=== PATIENT | female | born 1960 | race Caucasian/White ===

== ENCOUNTER 2020-10-08 11:20 | Emergency (ER) | payer BC ==
--- NOTE | 2020-10-08 12:15 | ED ---
Fall HPI - General Chief Complaint: Fall Stated Complaint: lt wrist injury Time Seen by Provider: 10/08/20 11:32 Source: patient Mode of arrival: ambulatory - History of Present Illness Initial Comments: Patient is a 59-year-old female presenting to the emergency department with chief complaint of left wrist pain. Patient reports this occurred about one hour prior to arrival. Patient states she was walking, lost her footing and fell backward and attempted to brace her fall with her left hand. Patient states she fell on an outstretched hand. Denies any head injury. Patient denies any numbness or tingling. States she took one Advil prior to arrival. States any movement of the hand makes the pain worse. Resting alleviate the pain. Patient does not want any pain medication. - Related Data Allergies Allergy/AdvReac Type Severity Reaction Status Date / Time No Known Allergies Allergy Verified 10/08/20 11:30 Review of Systems ROS Statement: Those systems with pertinent positive or pertinent negative responses have been documented in the HPI. ROS Other: All systems not noted in ROS Statement are negative. Past Medical History Past Medical History: Thyroid Disorder History of Any Multi-Drug Resistant Organisms: None Reported Past Surgical History: No Surgical Hx Reported Past Psychological History: No Psychological Hx Reported Smoking Status: Never smoker Past Alcohol Use History: Occasional Past Drug Use History: None Reported General Exam Limitations: no limitations General appearance: alert, in no apparent distress Head exam: Present: atraumatic, normocephalic, normal inspection Eye exam: Present: normal appearance, PERRL, EOMI Pupils: Present: normal accommodation ENT exam: Present: normal exam, normal oropharynx, mucous membranes moist, TM's normal bilaterally, normal external ear exam Neck exam: Present: normal inspection, full ROM. Absent: tenderness Respiratory exam: Present: normal lung sounds bilaterally. Absent: respiratory distress, wheezes, rales Cardiovascular Exam: Present: regular rate, normal rhythm, normal heart sounds Extremities exam: Present: tenderness (Left wrist tenderness), normal capillary refill, other (+2 ulnar radial pulses bilateral. Sensation intact in the left hand). Absent: normal inspection (Small region of swelling on the lateral aspect of the left wrist.), full ROM (Limited range of motion with wrist flexion and extension due to pain.), pedal edema, joint swelling, calf tenderness Back exam: Present: normal inspection, full ROM. Absent: tenderness, CVA tenderness (R), CVA tenderness (L) Neurological exam: Present: alert, oriented X3, normal gait Psychiatric exam: Present: normal affect, normal mood. Absent: depressed, agitated Skin exam: Present: warm, dry, intact, normal color Course Vital Signs 10/08/20 11:27 Temperature 98.1 F Pulse Rate 95 Respiratory 18 Rate Blood Pressure 179/80 O2 Sat by Pulse 98 Oximetry Procedures - Orthopedic Splinting/Casting Injury #1 Side: left Upper Extremity Immobilizer: volar splint, Inder wrap, synthetic pre-padded splint Medical Decision Making - Medical Decision Making 59-year-old female presenting to emergency department chief complaining of a wrist pain. On physical examination, patient does have region of mild swelling on the lateral aspect of the left wrist. Limited range of motion due to pain. She is otherwise neurovascularly intact. X-ray reveals an intra-articular, mildly comminuted distal radial fracture. Patient was offered analgesia, she declined. Patient was applied a volar splint. She was advised to rice. She was advised to follow with an grounds restoration specialist. Return parameters discussed the patient was understanding and agreeable. Case discussed with physician. Disposition Clinical Impression: Fall, Left wrist fracture, Distal radius fracture, left Disposition: HOME SELF-CARE Condition: Stable Instructions (If sedation given, give patient instructions): Wrist Fracture in Adults (ED) Additional Instructions: Alternate between Tylenol and Motrin for pain control. Apply ice compresses and keep the arm elevated. Follow-up with grounds restoration specialist. Return to em ergency department if symptoms worsen. Is patient prescribed a controlled substance at d/c from ED?: No Referrals: Nonstaff,Physician [Primary Care Provider] - 1-2 days Marcus Templeton MD [STAFF PHYSICIAN] - 1-2 days Time of Disposition: 12:45
--- NOTE | 2020-10-08 12:16 | XR ---
EXAMINATION TYPE: XR wrist complete LT DATE OF EXAM: 10/08/2020 CLINICAL HISTORY: pain TECHNIQUE: Frontal, lateral and oblique images of the left wrist are obtained. COMPARISON: None. FINDINGS: Mildly comminuted distal radial fracture with intra-articular extension. No additional disp laced fracture seen with certainty. Overlying soft tissue swelling noted. IMPRESSION: Mildly comminuted distal radial fracture with intra-articular extension. ICD 10 closed FRACTURE, INITIAL EVALUATION
[2020-10-08] MEDS ORDERED: ACET/COD 300 MG/30 MG STARTER PACK 6 TAB BTL PO STA (12:52)
[2020-10-08] MEDS ORDERED: HYDROcodone/APAP 5-325MG 1 EACH TAB PO STA (12:52)
[2020-10-08] MEDS ORDERED: traMADol 50 MG STARTER PACK 3 TAB BTL PO STA (13:01)
[2020-10-08 13:10] VITALS: BP 138/79; PULSE 78; RESP 16; TEMP 98
== END 2020-10-08 13:09 | disposition home or self-care (01) ==
LOC: EC 11:20
DX: S52.502A Unspecified fracture of the lower end of left radius, initial encounter for closed fracture (principal); W01.0XXA Fall on same level from slipping, tripping and stumbling without subsequent striking against object, initial encounter; Y93.01 Activity, walking, marching and hiking
CPT/HCPCS: 99283